=== PATIENT | female | born 1990 | race Caucasian/White ===

== ENCOUNTER → 2021-03-08 | Outpatient (CLI) | payer OTHER ==
[~2021-03-08] MED LIST: RELIEF PO
[2021-03-08 12:57] LABS: BASOPHILS % (AUTO) 1 % (0-1); EOSINOPHILS % (AUTO) 1 % (1-7); LYMPHOCYTES % (AUTO) 25 % (22-44); MEAN CORPUSCULAR HEMOGLOBIN 21.7 pg (27.0-34.8); MEAN PLATELET VOLUME 7.3 fL (7.4-10.4); MONOCYTES % (AUTO) 5 % (2-9); NEUTROPHILS % (AUTO) 68 % (42-75); PLATELET COUNT 347 x10^3/uL (130-400); RED BLOOD COUNT 4.62 x10^6/uL (3.82-5.3); RED CELL DISTRIBUTION WIDTH 17.9 % (9.6-15.2)
[2021-03-08 12:57] LABS: MICROSCOPIC NOT IND
[2021-03-08 13:05] LABS: ALBUMIN 3.3 g/dL (3.4-5.0); ANION GAP 6 mmol/L (5-15); CALCIUM 8.4 mg/dL (8.5-10.1); CHLORIDE 106 mmol/L (98-107)
[2021-03-08 13:11] LABS: ALANINE AMINOTRANSFERASE 38 U/L (12-78); ALKALINE PHOSPHATASE 66 U/L (45-117); BILIRUBIN,TOTAL 0.3 mg/dL (0.2-1.0); TOTAL PROTEIN 7.8 g/dL (6.4-8.2)
[2021-03-08 13:31] LABS: <PLATELET ESTIMATE> ADEQUATE; <PLT MORPHOLOGY> NORMAL PLT MORPH; ANISOCYTOSIS 1+; HYPOCHROMIA 1+; MICROCYTOSIS 2+
== END | disposition home or self-care (01) ==
LOC: STAR 12:12
PROVIDERS: ATTEND Obstetrics & Gynecology Gynecology
DX: Z01.818 Encounter for other preprocedural examination (principal); N93.9 Abnormal uterine and vaginal bleeding, unspecified
CPT/HCPCS: 36415; 80053; 81003; 84702; 85025

== ENCOUNTER 2021-03-16 13:35 | Day surgery (SDC) | payer OTHER ==
[~2021-03-16] VITALS: Ht 170.2 cm; Wt 121.4 kg
[2021-03-16 14:17] VITALS: BP 113/78
[2021-03-16] MEDS ORDERED: MULT-658 PO (14:20)
[2021-03-16] MEDS ORDERED: OMEP20TA62 PO (14:20)
[2021-03-16] MEDS ORDERED: CHLORHEXIDINE 15 ML UDC PO ONE (14:30)
[2021-03-16] MEDS ORDERED: LACTATED RINGERS 1,000 ML IV SCH (14:30)
[2021-03-16 14:53] LABS: HCG UR SG 1.024 (1.003-1.030)
[2021-03-16] MEDS ORDERED: MIDAZOLAM 1 MG/ML, 2ML ONE (16:10)
[2021-03-16] MEDS ORDERED: FENTANYL PF 250 MCG/5ML ONE (16:11)
[2021-03-16] MEDS ORDERED: DEXAMETHASONE 4 MG/ML, 1ML ONE ×2 (16:14→16:23)
[2021-03-16] MEDS ORDERED: PROPOFOL 10 MG/ML, 20ML ONE (16:23)
[2021-03-16] MEDS ORDERED: ROCURONIUM 10 MG/ML,10ML ONE (16:23)
[2021-03-16] MEDS ORDERED: ONDANSETRON 2MG/ML, 2ML ONE (16:23)
[2021-03-16] MEDS ORDERED: KETOROLAC 30 MG/1 ML ONE (16:23)
[2021-03-16] MEDS ORDERED: SUCCINYLCHOLINE 20 MG/ML, 10ML ONE (16:23)
[2021-03-16] MEDS ORDERED: ACETAMINOPHEN 325 MG TABLET PO PRN (17:30)
[2021-03-16] MEDS ORDERED: DIPHENHYDRAMINE 50 MG/ML, 1ML IVPush PRN ×2 (17:30)
[2021-03-16] MEDS ORDERED: hydrALAzine 20 MG/ML, 1ML IV PRN (17:30)
[2021-03-16] MEDS ORDERED: DIAZEPAM 5 MG/ML, 2ML IVPush PRN (17:30)
[2021-03-16] MEDS ORDERED: MIDAZOLAM 1 MG/ML, 2ML IV PRN (17:30)
[2021-03-16] MEDS ORDERED: LORazepam 2 MG/ML, 1ML IVPush PRN (17:30)
[2021-03-16] MEDS ORDERED: OXYcodone 5 MG/5 ML ORAL.SOL UDC PO PRN (17:30)
[2021-03-16] MEDS ORDERED: HYDROmorphone 1 MG/ML, 1ML INJ IVPush PRN (17:30)
[2021-03-16] MEDS ORDERED: ONDANSETRON 2MG/ML, 2ML IVPush PRN (17:30)
[2021-03-16] MEDS ORDERED: PROMETHAZINE 12.5 MG SUPP PR PRN (17:30)
[2021-03-16] MEDS ORDERED: MEPERIDINE/PF 25MG/0.5ML IVPush PRN (17:30)
[2021-03-16] MEDS ORDERED: LABETALOL 5MG/ML, 20ML IV PRN (17:30)
[2021-03-16] MEDS ORDERED: EPHEDRINE 50 MG/ML, 1ML IVPush PRN (17:30)
[2021-03-16] MEDS ORDERED: PROMETHAZINE 25 MG/ML, 1ML IVPush PRN (17:30)
[2021-03-16] MEDS ORDERED: ALBUTEROL SULFATE 2.5 MG/3 ML NPPB PRN (17:30)
[2021-03-16] MEDS ORDERED: OXYcodone 5 MG/5 ML ORAL.SOL UDC ONE ×2 (17:35→17:38)
[2021-03-16] MEDS ORDERED: FENTANYL PF 100 MCG/2ML ONE (17:35)
[2021-03-16] MEDS: FENTANYL PF 100 MCG/2ML IV PRN ×2 (17:36→17:41)
[2021-03-16] MEDS ORDERED: DIAZEPAM 5 MG/ML, 2ML ONE (17:59)
== END 2021-03-16 19:40 | disposition home or self-care (01) ==
LOC: OR 13:35
PROVIDERS: ATTEND Obstetrics & Gynecology Gynecology
DX: N93.9 Abnormal uterine and vaginal bleeding, unspecified (principal); N84.0 Polyp of corpus uteri; K21.9 Gastro-esophageal reflux disease without esophagitis; E66.01 Morbid (severe) obesity due to excess calories; Z68.41 Body mass index [BMI] 40.0-44.9, adult; Z90.49 Acquired absence of other specified parts of digestive tract; Z91.012 Allergy to eggs; Z98.51 Tubal ligation status
CPT/HCPCS: 36415; 58563; 81025; 86850; 86900; 88305; J0330; J1100; J1885; J2250; J2405; J2704; J3010; J3360; J7120